=== PATIENT | female | born 1950 | race Caucasian/White ===

== ENCOUNTER 2021-04-24 10:28 | Outpatient (CLI) | payer MEDICARE | END 2021-04-24 10:29 | disposition home or self-care (01) | LOC: BICMAMMO 10:28 | PROVIDERS: ATTEND Family Medicine | DX: Z13.820 Encounter for screening for osteoporosis (principal); M85.89 Other specified disorders of bone density and structure, multiple sites; Z78.0 Asymptomatic menopausal state | CPT/HCPCS: 77080 ==

== ENCOUNTER 2021-05-25 18:40 | Inpatient (IN) | payer MEDICARE ==
[2021-05-26] MEDS ORDERED: Ondansetron PF 4 MG/2 ML Vial IVP PRN (00:27)
[2021-05-26] MEDS ORDERED: Morphine 4 MG/ML VIAL SLOW IVP PRN (00:28)
[2021-05-26 01:00] VITALS: BMI 23.9
[2021-05-26] MEDS ORDERED: hydrALAZINE 20 MG/ML VIAL SLOW IVP PRN (01:33)
[2021-05-26] MEDS: Sodium Chloride 0.9% 1,000 ML IV SCH ×2 (01:46→21:35)
[2021-05-26 04:49] LABS: #Lymphocytes 1.3 thou/uL (1.20-3.40); #Monocytes 0.6 thou/uL (0.11-0.59); %Basophils 0.6 % (0.0-1.0); %Eosinophils 0.7 % (0.0-10.0); %Lymphocytes 21.4 % (21.0-51.0); %Monocytes 9.9 % (0.0-10.0); %Neutrophils 67.4 % (42.0-75.0); Hemoglobin 12.5 g/dL (12.0-16.0); Mean Corpuscular HGB CONC 34.4 g/dL (32.0-36.0); Mean Corpuscular Hemoglobin 33.7 pg (27.0-31.0); Mean Corpuscular Volume 97.9 fL (78.0-98.0); Mean Platelet Volume 8.8 fL (7.4-10.4); Platelet Count 159 thou/uL (130-400); RBC Distribution Width 12.9 % (11.5-14.5); Red Blood Cell (RBC) Count 3.71 mill/uL (4.20-5.40); White Blood Cell (WBC) Count 5.9 thou/uL (4.8-10.8)
[2021-05-26 05:30] LABS: ALT (SGPT) 595 U/L (8-55); AST (SGOT) 431 U/L (5-34); Albumin 3.7 g/dL (3.4-4.8); Alkaline Phosphatase 381 U/L (40-110); Anion Gap 14 mmol/L (10-20); BUN (Urea Nitrogen) 8 mg/dL (9.8-20.1); Bilirubin, Total 11.9 mg/dL (0.2-1.2); Calc. Creatinine Clearance 80 mL/min (70-130); Calcium 9.5 mg/dL (7.8-10.44); Carbon Dioxide 23 mmol/L (23-31); Chloride 105 mmol/L (98-107); Globulin 2.5 g/dL (2.4-3.5); Glucose 113 mg/dL (80-115); Potassium 4.2 mmol/L (3.5-5.1); Protein, Total 6.2 g/dL (5.8-8.1); Sodium 138 mmol/L (136-145)
[2021-05-26] MEDS: Acetaminophen 500 MG TAB PO PRN (07:26)
[2021-05-26] MEDS: Pantoprazole 40 MG VIAL IVP SCH (07:27)
[2021-05-26] MEDS ORDERED: Indomethacin 50 MG SUPP PR SCH (07:30)
[2021-05-26] MEDS ORDERED: Fentanyl 100 MCG/2 ML VIAL ONE (10:36)
[2021-05-26] MEDS ORDERED: Iothalamate Meglumine 60% 50 ML VIAL FS ONE (10:56)
[2021-05-26] MEDS ORDERED: Indocyanine Green 25 MG/10 ML VIAL ONE (10:56)
[2021-05-26] MEDS ORDERED: Indomethacin 50 MG SUPP ONE (11:00)
[2021-05-26] MEDS ORDERED: Esmolol 100 MG/10 ML VIAL ONE (11:18)
[2021-05-26] MEDS ORDERED: PROPOFOL 200 MG/20 ML VIAL ONE (11:18)
[2021-05-26] MEDS ORDERED: Dexamethasone 20 MG/5 ML VIAL ONE (11:18)
[2021-05-26] MEDS ORDERED: Ondansetron PF 4 MG/2 ML Vial ONE (11:18)
[2021-05-26] MEDS ORDERED: Lidocaine 1% PF 5 ML VIAL ONE (11:18)
[2021-05-26] MEDS ORDERED: Rocuronium Bromide 10 MG/ML (10ML VIAL) ONE (11:18)
[2021-05-26] MEDS ORDERED: Glycopyrrolate 0.2 MG/ML 5 ML SYRINGE ONE (11:18)
[2021-05-26] MEDS ORDERED: Meperidine HCl/PF 25 MG/ML VIAL SLOW IVP PRN (11:41)
[2021-05-26] MEDS ORDERED: Ondansetron HCl/PF 4 MG/2 ML Vial IVP PRN (11:41)
[2021-05-26] MEDS ORDERED: Promethazine HCl 25 MG/ML VIAL IVPB PRN (11:41)
[2021-05-26] MEDS: Piperacillin/Tazobactam 3.375 GM in Sodium Chloride 0.9% 100 ML IVPB SCH ×2 (14:19→21:31)
[2021-05-27] MEDS: Acetaminophen 500 MG TAB PO PRN ×2 (03:53→11:43)
[2021-05-27] MEDS: Piperacillin/Tazobactam 3.375 GM in Sodium Chloride 0.9% 100 ML IVPB SCH ×2 (05:47→14:25)
[2021-05-27 06:07] LABS: #Lymphocytes 1.4 thou/uL (1.20-3.40); #Monocytes 0.6 thou/uL (0.11-0.59); #Neutrophils 3.9 thou/uL (1.40-6.50); %Basophils 0.6 % (0.0-1.0); %Eosinophils 0.3 % (0.0-10.0); %Lymphocytes 23.6 % (21.0-51.0); %Monocytes 10.6 % (0.0-10.0); %Neutrophils 64.9 % (42.0-75.0); Hemoglobin 11.1 g/dL (12.0-16.0); Mean Corpuscular HGB CONC 33.3 g/dL (32.0-36.0); Mean Corpuscular Hemoglobin 32.8 pg (27.0-31.0); Mean Corpuscular Volume 98.6 fL (78.0-98.0); Mean Platelet Volume 8.8 fL (7.4-10.4); Platelet Count 151 thou/uL (130-400); RBC Distribution Width 12.9 % (11.5-14.5); Red Blood Cell (RBC) Count 3.38 mill/uL (4.20-5.40)
[2021-05-27 06:33] LABS: ALT (SGPT) 540 U/L (8-55); AST (SGOT) 368 U/L (5-34); Albumin 3.2 g/dL (3.4-4.8); Alkaline Phosphatase 312 U/L (40-110); Anion Gap 11 mmol/L (10-20); BUN (Urea Nitrogen) 11 mg/dL (9.8-20.1); Bilirubin, Total 6.3 mg/dL (0.2-1.2); Calc. Creatinine Clearance 78 mL/min (70-130); Calcium 8.7 mg/dL (7.8-10.44); Carbon Dioxide 23 mmol/L (23-31); Chloride 109 mmol/L (98-107); Globulin 2.1 g/dL (2.4-3.5); Glucose 104 mg/dL (80-115); Potassium 3.7 mmol/L (3.5-5.1); Protein, Total 5.3 g/dL (5.8-8.1); Sodium 139 mmol/L (136-145)
[2021-05-27] MEDS: Pantoprazole 40 MG VIAL IVP SCH (08:42)
[2021-05-27] MEDS: Sodium Chloride 0.9% 1,000 ML IV SCH ×2 (08:42→17:21)
[2021-05-27] MEDS ORDERED: Magnevist 469MG/ML 20 ML VIAL ONE (10:55)
[2021-05-27] MEDS ORDERED: Temazepam 15 MG CAP PO PRN (11:35)
[2021-05-27 15:40] VITALS: BP 122/64; TEMP 97.9
== END 2021-05-27 18:55 | disposition home or self-care (01) | DRG 446 ==
LOC: SJJU 18:40
PROVIDERS: ADMIT Internal Medicine; ATTEND Family Medicine
PROC: 0F798DZ Dilation of Common Bile Duct with Intraluminal Device, Via Natural or Artificial Opening Endoscopic (ICD-10-PCS; principal; 2021-05-26)
PROC: 0DB98ZX Excision of Duodenum, Via Natural or Artificial Opening Endoscopic, Diagnostic (ICD-10-PCS; 2021-05-26)
DX: K83.1 Obstruction of bile duct (principal); I10 Essential (primary) hypertension; K31.7 Polyp of stomach and duodenum; Z98.890 Other specified postprocedural states; Z87.891 Personal history of nicotine dependence
CPT/HCPCS: 36415; 74183; 74330; 76705; 80053; 85025; 88112; 88305; 88342; A9579; C9113; J0360; J1100; J2405; J2543; J2704; J3010; J3490; J7050; Q9961-U8

== ENCOUNTER 2021-06-22 12:23 | Emergency (ER) | payer MEDICARE ==
[2021-06-22] MEDS ORDERED: Ondansetron PF 4 MG/2 ML Vial ONE (12:48)
[2021-06-22] MEDS ORDERED: Morphine 4 MG/ML VIAL ONE ×2 (12:48→16:11)
[2021-06-22 13:28] LABS: #Basophils 0.1 thou/uL (0.0-0.2); #Eosinphils 0.2 thou/uL (0.0-0.7); #Lymphocytes 1.6 thou/uL (1.20-3.40); #Monocytes 0.6 thou/uL (0.11-0.59); #Neutrophils 4.2 thou/uL (1.40-6.50); %Basophils 1.1 % (0.0-1.0); %Eosinophils 2.4 % (0.0-10.0); %Lymphocytes 23.6 % (21.0-51.0); %Neutrophils 63.9 % (42.0-75.0); Hemoglobin 13.7 g/dL (12.0-16.0); Mean Corpuscular Hemoglobin 33.1 pg (27.0-31.0); Mean Corpuscular Volume 97.3 fL (78.0-98.0); Mean Platelet Volume 7.4 fL (7.4-10.4); Platelet Count 237 thou/uL (130-400); RBC Distribution Width 12.5 % (11.5-14.5); Red Blood Cell (RBC) Count 4.12 mill/uL (4.20-5.40); White Blood Cell (WBC) Count 6.6 thou/uL (4.8-10.8)
[2021-06-22 13:48] LABS: ALT (SGPT) 195 U/L (8-55); AST (SGOT) 121 U/L (5-34); Albumin 3.9 g/dL (3.4-4.8); Alkaline Phosphatase 656 U/L (40-110); Anion Gap 14 mmol/L (10-20); BUN (Urea Nitrogen) 11 mg/dL (9.8-20.1); Bilirubin, Total 2.8 mg/dL (0.2-1.2); Calc. Creatinine Clearance 0 mL/min (70-130); Calcium 9.9 mg/dL (7.8-10.44); Carbon Dioxide 26 mmol/L (23-31); Chloride 103 mmol/L (98-107); Globulin 3.7 g/dL (2.4-3.5); Glucose 109 mg/dL (80-115); Lipase 74 U/L (8-78); Potassium 3.7 mmol/L (3.5-5.1); Protein, Total 7.6 g/dL (5.8-8.1); Sodium 139 mmol/L (136-145)
== END 2021-06-22 16:17 | disposition home or self-care (01) ==
LOC: ERS 12:23
DX: C24.9 Malignant neoplasm of biliary tract, unspecified (principal); R94.5 Abnormal results of liver function studies; R74.01 Elevation of levels of liver transaminase levels
CPT/HCPCS: 80053; 83690; 85025; 93005; 96374; 96375; 96376; J2270; J2405

== ENCOUNTER 2021-08-23 09:09 | Outpatient (CLI) | payer MEDICARE | END 2021-08-23 09:10 | disposition home or self-care (01) | LOC: CT 09:09 | PROVIDERS: ATTEND Internal Medicine Hematology & Oncology | DX: C25.0 Malignant neoplasm of head of pancreas (principal); D50.0 Iron deficiency anemia secondary to blood loss (chronic); M79.9 Soft tissue disorder, unspecified; Z98.890 Other specified postprocedural states | CPT/HCPCS: 71260; 74177 ==